=== PATIENT | female | born 1975 | race Caucasian/White ===

== ENCOUNTER → 2019-01-15 | Outpatient (CLI) | payer BC ==
--- NOTE | 2019-01-15 12:35 | MR ---
MR neck with and without contrast HISTORY: Left neck mass Multiplanar multisequence and postcontrast images through the neck following 7 cc Gadavist IV. Patient's palpable left neck mass was marked with an overlying marker. Inflammatory change in the right maxillary sinus may represent mucus retention cyst. Visualized porti ons of the orbits are symmetric and unremarkable. Salivary glands show symmetric appearance. Scattere d nonenlarged lymph nodes are present in the midline in appearance. The level of the patient's overly ing marker shows some small nodes. Skull base is unremarkable. Mild degenerative disc changes in the visualized cervical spine. No abnormal enhancement following contrast administration. Level the true and false cords is unremarkable. Dental amalgam causes some susceptibility artifact. There are normal vascular flow voids. IMPRESSION: No significant abnormality is evident. Mild sinus disease. Correlate for palpable abnorma lity and nonenlarged lymph nodes.
== END | disposition home or self-care (01) ==
LOC: RADMRIMAIN 09:11
PROVIDERS: ATTEND Otolaryngology
DX: R22.1 Localized swelling, mass and lump, neck (principal); J32.9 Chronic sinusitis, unspecified
CPT/HCPCS: 70543; A9585